=== PATIENT | female | born 1950 | race Caucasian/White ===

== ENCOUNTER → 2017-04-25 | Outpatient (CLI) | payer OTHER, MEDICARE | LOC: FIMAGING 13:48 | PROVIDERS: ATTEND Internal Medicine | DX: Z12.31 Encounter for screening mammogram for malignant neoplasm of breast (principal); Z80.3 Family history of malignant neoplasm of breast | CPT/HCPCS: G0202 ==

== ENCOUNTER → 2017-07-20 | Outpatient (CLI) | payer OTHER, MEDICARE | LOC: FIMAGING 07:15 | PROVIDERS: ATTEND Internal Medicine | DX: S92.352A Displaced fracture of fifth metatarsal bone, left foot, initial encounter for closed fracture (principal) ==

== ENCOUNTER 2017-08-09 21:03 | Emergency (ER) | payer OTHER, MEDICARE ==
--- NOTE | 2017-08-09 21:22 | CPEKG ---
Heart Rate: 82 RR Interval: 732 P-R Interval: 176 QRSD Interval: 76 QT Interval: 404 QTC Interval: 472 P [place]: 47 QRS [place]: 32 T Wave [place]: 23 EKG Severity - ABNORMAL ECG - EKG Impression: SINUS RHYTHM Electronically Signed By: Kang Barbosa 13-Aug-2017 13:53:40
--- NOTE | 2017-08-09 21:52 | EDPHY ---
H & P Stated Complaint: Near syncope. - Personal History Current Tetanus/Diphtheria Vaccine: Unsure Current Tetanus Diphtheria and Acellular Pertussis (TDAP): Unsure - Medical/Surgical History Hx Asthma: No Hx Chronic Respiratory Disease: Yes Hx Diabetes: No Hx Cardiac Disease: No Hx Renal Disease: No Hx Cirrhosis: No Hx Alcoholism: No Hx HIV/AIDS: No Hx Splenectomy or Spleen Trauma: No Other PMH: Lung Ca, hypothyroid. - Social History Smoking Status: Former smoker Time Seen by Provider: 08/09/17 21:21 Constitutional: Initial Vital Signs Temperature (C) 36.3 C 08/09/17 21:06 Heart Rate 94 08/09/17 21:06 Respiratory Rate 17 08/09/17 21:06 Blood Pressure 98/69 L 08/09/17 21:06 O2 Sat (%) 99 08/09/17 21:06 O2 Delivery Mode Room Air Allergies/Adverse Reactions: No Known Allergies Allergy (Unverified 12/17/15 15:04) Home Medications: Medication Instructions Recorded Levothyroxine Sodium [Synthroid] 75 mcg PO 01/16/13 Medical Decision Making ED Course/Re-evaluation: CHIEF COMPLAINT: Dizziness, loss of balance, emotional HISTORY OF PRESENT ILLNESS: The patient is a 66 y/o female with history of lung cancer status post lobectomy complaining of episodes of dizziness, confusion, loss of balance, and swinging emotions over the past month. A few weeks ago while working out she says, "I completely lost my bearings and got totally confused" and couldn't find her way out of the parking lot. She then broke down crying and felt like she didn't know what was going on. A few days ago she developed left arm pain and then suddenly lost her balance completely while walking causing her to stumble, but not fall. She denies preceding palpitations , dyspnea, chest pain, rapid heart rate, or other symptoms. The balance issue resolved and she proceeded to watch a movie with her son. No recent illness or trauma. She denies any current symptoms. REVIEW OF SYSTEMS: A 10 point review of systems was performed and is negative with the exception of the elements mentioned in the history of present illness. PHYSICAL EXAM: HR, BP, O2 Sat, RR. Temp noted General Appearance: Alert, well hydrated, appropriate, and non-toxic appearing. Head: Atraumatic without scalp tenderness or obvious injury Eyes: Pupils equal, round, reactive to light and accommodation, EOMI, no trauma , no injection. Nose: Atraumatic, no rhinorrhea, clear. Throat: Mucus membranes moist. Neck: Supple, non-tender, no lymphadenopathy. Respiratory: No retractions, no distress, no wheezes, and no accessory muscle use. Lungs are clear to auscultation bilaterally. Cardiovascular: Regular rate and rhythm, no murmurs, rubs, or gallops. Good capillary refill all extremities. Gastrointestinal: Abdomen is soft, non-tender, non-distended, no masses, no rebound, no guarding, no peritoneal signs. Musculoskeletal: Normal active ROM of all extremities, atraumatic. Neurological: Alert, appropriate, and interactive. The patient has non-focal cranial nerves, motor, sensory, and cerebellar exam. Skin: No rashes, good turgor, no nodules on palpation. PAST MEDICAL HISTORY: Non small cell lung adenocarcinoma, hypothyroidism, arthritis PAST SURGICAL HISTORY: Lobectomy SOCIAL HISTORY: Son at bedside. Former smoker, quit 1974 Prior medical records reviewed including DIAGNOSTICS/PROCEDURES/CRITICAL CARE TIME: The 12 lead EKG was interpreted by myself. Sinus mechanism rate 82. See hard copy and/or "tracemaster" electronic copy for interpretation. DIFFERENTIAL DIAGNOSIS: The differential diagnosis for the patient's dizziness included but was not limited to peripheral and central causes of vertigo, orthostatic causes including dehydration, cardiogenic and neurogenic causes, and blood loss. MEDICAL DECISION MAKING: This is a 66 y/o female with a history of non-small cell lung adenocarcinoma who presents for evaluation following a couple episodes of dizziness, loss of balance, disorientation, and fluctuating emotions. Her neurologic exam is completely normal and she is asymptomatic at this time. Concern for metastatic disease to brain. Plan for brain MRI in addition to labs and EKG. 2199: Patient care signed out to Dr. Banuelos at shift change pending MRI results. (Owen Wheeler) 2315: MRI with and without contrast reviewed by Dr. Kumar Wu in called to me. Negative for acute infarct or bleed. No evidence of metastatic disease. Unremarkable MRI brain with and without contrast. I discussed this at length with the patient. Additionally I discussed return precautions with her. She understands return emergency room if she gets dizzy, chest pain, shortness of breath or does not feel well. She understands. ( Alex Banuelos) - Data Points Laboratory Results: Laboratory Results 08/09/17 22:02 08/09/17 22:02 08/09/17 08/09/17 08/09/17 22:02 22:02 21:56 WBC 4.80 10^3/uL 10^3/uL (3.80-9.50) RBC 3.96 10^6/uL L 10^6/uL (4.18-5.33) Hgb 13.3 g/dL g/dL (12.6-16.3) POC Hgb 12.9 gm/dL gm/dL (12.6-16.3) Hct 39.4 % % (38.0-47.0) POC Hct 38 % % (38-47) MCV 99.5 fL fL (81.5-99.8) MCH 33.6 pg pg (27.9-34.1) MCHC 33.8 g/dL g/dL (32.4-36.7) RDW 12.2 % % (11.5-15.2) Plt Count 142 10^3/uL L 10^3/uL (150-400) MPV 9.8 fL fL (8.7-11.7) Neut % (Auto) 46.9 % % (39.3-74.2) Lymph % (Auto) 42.7 % % (15.0-45.0) [place] % (Auto) 7.9 % % (4.5-13.0) Eos % (Auto) 1.7 % % (0.6-7.6) Baso % (Auto) 0.6 % % (0.3-1.7) Nucleat RBC Rel Count 0.0 % % (0.0-0.2) Absolute Neuts (auto) 2.25 10^3/uL 10^3/uL (1.70-6.50) Absolute Lymphs (auto) 2.05 10^3/uL 10^3/uL (1.00-3.00) Absolute Monos (auto) 0.38 10^3/uL 10^3/uL (0.30-0.80) Absolute Eos (auto) 0.08 10^3/uL 10^3/uL (0.03-0.40) Absolute Basos (auto) 0.03 10^3/uL 10^3/uL (0.02-0.10) Absolute Nucleated RBC 0.00 10^3/uL 10^3/uL (0-0.01) Immature Gran % 0.2 % % (0.0-1.1) Immature Gran # 0.01 10^3/uL 10^3/uL (0.00-0.10) POC Sodium 144 mEq/L mEq/L (134-144) Sodium 146 mEq/L H mEq/L (134-144) POC Potassium 3.9 mEq/L mEq/L (3.3-5.0) Potassium 4.3 mEq/L mEq/L (3.5-5.2) POC Chloride 109 mEq/L mEq/L (97-110) Chloride 111 mEq/L H mEq/L (97-110) Carbon Dioxide 24 mEq/l mEq/l (22-31) Anion Gap 11 mEq/L mEq/L (8-16) POC BUN 22 mg/dL mg/dL (7-23) BUN 22 mg/dL mg/dL (7-23) Creatinine 1.4 mg/dL H mg/dL (0.6-1.0) POC Creatinine 1.5 mg/dL H mg/dL (0.6-1.0) Estimated GFR 37 Glucose 100 mg/dL mg/dL (70-100) POC Glucose 101 mg/dL H mg/dL (70-100) Calcium 9.7 mg/dL mg/dL (8.5-10.4) Magnesium 2.1 mg/dL mg/dL (1.6-2.3) Troponin I < 0.012 ng/mL ng/mL (0.000-0.034) Medications Given: Discontinued Medications Sodium Chloride (Ns) 1,000 mls @ 0 mls/hr IV ONCE ONE PRN Reason: Wide Open Stop: 08/09/17 22:07 Last Admin: 08/09/17 22:46 Dose: 1,000 mls Point of Care Test Results: 08/09/17 21:56 POC Sodium 144 POC Potassium 3.9 POC Chloride 109 POC BUN 22 POC Creatinine 1.5 H POC Glucose 101 H Departure - Departure Disposition: Home, Routine, Self-Care Clinical Impression: Dizziness Condition: Good Instructions: Dizziness (ED) Additional Instructions: 1. Return emergency room if you have further episode of this, or you do not feel well or develops severe dizziness chest pain or shortness of breath. Referrals: Jakub Yo MD [Primary Care Provider] - As per Instructions Stanley Mir MD [Medical Doctor] - As per Instructions Report Scribed for: Owen Wheeler Report Scribed by: Chiquita Patel Date of Report: 08/09/17 Time of Report: 21:52
[2017-08-09] MEDS ORDERED: NS 1,000 ML IV ONE (22:06)
[2017-08-09 22:17] LABS: PLATELET COUNT 142 10^3/uL (150-400)
[2017-08-09] MEDS ORDERED: GADOBUTROL 10 ML VIAL IVP ONE (22:27)
[2017-08-09 23:37] VITALS: BP 107/68; PULSE 79; RESP 16; TEMP 97.5; O2SAT 96
== END 2017-08-09 23:34 | disposition home or self-care (01) ==
DX: R42 Dizziness and giddiness (principal); Z85.118 Personal history of other malignant neoplasm of bronchus and lung; Z87.891 Personal history of nicotine dependence
CPT/HCPCS: 70553; 93005; 99285; A9585; 82947-QW

== ENCOUNTER → 2018-04-23 | Outpatient (CLI) | payer OTHER, MEDICARE ==
[~2018-04-23] MED LIST: IOPAMIDOL (ISOVUE-300) 100 ML BTL ONE
== END ==
LOC: FIMAGING 17:46
PROVIDERS: ATTEND Internal Medicine Hematology & Oncology
DX: R05 Cough (principal); Z85.118 Personal history of other malignant neoplasm of bronchus and lung; Z90.2 Acquired absence of lung [part of]
CPT/HCPCS: 71260; Q9967; 82565-PO

== ENCOUNTER → 2018-05-05 | Outpatient (CLI) | payer OTHER, MEDICARE | LOC: FIMAGING 08:41 | PROVIDERS: ATTEND Internal Medicine | DX: Z12.31 Encounter for screening mammogram for malignant neoplasm of breast (principal); Z80.3 Family history of malignant neoplasm of breast ==

== ENCOUNTER → 2018-05-22 | Outpatient (CLI) | payer OTHER, MEDICARE | LOC: FIMAGING 16:34 | PROVIDERS: ATTEND Internal Medicine | DX: M50.11 Cervical disc disorder with radiculopathy, high cervical region (principal); M46.92 Unspecified inflammatory spondylopathy, cervical region ==

== ENCOUNTER → 2018-06-11 | Outpatient (CLI) | payer OTHER, MEDICARE | LOC: FIMAGING 12:14 | PROVIDERS: ATTEND Internal Medicine | DX: M50.31 Other cervical disc degeneration, high cervical region (principal); M50.321 Other cervical disc degeneration at C4-C5 level; M50.322 Other cervical disc degeneration at C5-C6 level; M50.323 Other cervical disc degeneration at C6-C7 level; M50.33 Other cervical disc degeneration, cervicothoracic region; M51.34 Other intervertebral disc degeneration, thoracic region; M12.88 Other specific arthropathies, not elsewhere classified, other specified site; M48.02 Spinal stenosis, cervical region; M99.71 Connective tissue and disc stenosis of intervertebral foramina of cervical region; G95.20 Unspecified cord compression ==